=== PATIENT | female | born 1975 | race American Indian/Alaskan Native ===

== ENCOUNTER 2016-12-22 21:31 | Emergency (ER) | payer MEDICAID ==
[2016-12-22 22:50] LABS: Basophils % (Auto) 0.4 % (0.0-1.8); Eosinophils % (Auto) 0.4 % (0.0-4.3); Hematocrit 35.4 % (30.3-42.9); Mean Corpuscular HGB Conc 34 % (30-34); Mean Corpuscular Volume 77 fl (79-97); Platelet Count 295 K/mm3 (140-440); Red Blood Count 4.62 M/mm3 (3.65-5.03); Red Cell Distribution Width 16.3 % (13.2-15.2); White Blood Count 7.9 K/mm3 (4.5-11.0)
[2016-12-22 22:51] LABS: Mean Corpuscular Hemoglobin 26 pg (28-32)
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
[2016-12-22 23:09] LABS: Anion Gap 21 mmol/L; BUN/Creatinine Ratio 5; Blood Urea Nitrogen 3 mg/dL (7-17); Calcium 9.7 mg/dL (8.4-10.2); Carbon Dioxide 23 mmol/L (22-30); Chloride 99.2 mmol/L (98-107); Glucose 120 mg/dL (65-100); Potassium 3.7 mmol/L (3.6-5.0); Sodium 139 mmol/L (137-145)
[2016-12-23] MEDS ORDERED: GEODON IM ONE (07:24)
[2016-12-23] MEDS ORDERED: WATER FOR INJ (PF) 10 ML ONE (07:31)
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
[2016-12-23 16:31] LABS: Urine Drugs of Abuse Note Disclamer
[2016-12-23 16:48] LABS: Bacteria,Urine 1+ /HPF (Negative); Bilirubin,Urine NEG (Negative); Blood,Urine NEG (Negative); Ketones,Urine 20 mg/dL (Negative); Leukocyte Esterase,Urine NEG (Negative); Mucus,Urine FEW /HPF; Nitrite,Urine NEG (Negative); Protein,Urine <15 mg/dL mg/dL (Negative); Urobilinogen,Urine < 2.0 mg/dL (<2.0)
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
[2016-12-24] MEDS: COGENTIN PO SCH (22:13)
--- NOTE | 2016-12-25 22:05 | Progress Note ---
Subjective - Reason for Consult Reason for consult: paranoid Mental Status Exam - Vital signs Last Vital Signs Temp 99.4 F 12/25/16 10:00 Pulse 88 12/25/16 10:00 Resp 18 12/25/16 15:04 BP 122/77 12/25/16 10:00 Pulse Ox 100 12/25/16 15:04 Assessment and Plan Somewhat more organized. Requesting to be discharged. Notes that she was informed that she would be discharged soon, but review of the medical record doesn't show that information. MENTAL STATUS EXAM: General Appearance: Dressed in hospital gown, in acute distress Sensorium/Consciousness: alert and responding to external stimuli Eye Contact: limited Attitude / Behavior: cooperative, but guarded Psychomotor & Musculoskeletal Activity: WNL Mood: anxious Affect: constricted Speech / Language: normal Thought Processes: disorganized, perseverative Thought Content: no SI, no HI, paranoid delusions Perception: no AH, no VH Orientation: person, place, time, situation Judgment What would you do if you smelled smoke in a crowded movie theater?: poor/impulsive Insight: poor Intelligence Vocabulary, general fund of knowledge, educational level: Average Capacity of ADLs: Independent ASSESSMENT: SIPD Cannabis Abuse PLAN OF CARE: Refer patient for inpatient hospitalization Continue zyprexa to address psychosis Use geodon PRN for control of agitation while in the ER
[2016-12-25] MEDS: COGENTIN PO SCH (22:26)
[2016-12-25 23:16] VITALS: BP 95/65
== END 2016-12-26 06:34 ==
LOC: ED 21:31 → EEVIPCON 21:31 → ED 12-26 06:34
DX: F22 Delusional disorders (principal); F17.210 Nicotine dependence, cigarettes, uncomplicated; F12.10 Cannabis abuse, uncomplicated
CPT/HCPCS: 36415; 80048; 80307; 81001; 81025; 85025; 96372; 99285; G0480; J3486; 80320